=== PATIENT | male | born 1960 | race Caucasian/White ===

== ENCOUNTER 2016-10-16 16:39 | Emergency (ER) | payer MEDICAID, OTHER ==
[~2016-10-16] VITALS: Ht 175.3 cm; Wt 62.1 kg
[~2016-10-16 16:39] MED LIST: FLOMAX0.4 MG ORAL; IBUPROFEN600 MG ORAL; NORCO 5-325 TA1 EACH ORAL; RISPERDAL1 MG PO; SERTRALINE HCL25 MG ORAL; TRAZODONE HCL150 MG ORAL
[2016-10-16 18:30] VITALS: BP 121/72
[2016-10-16] MEDS ORDERED: Mylanta II UD 30ml ORAL ONE (19:15)
--- NOTE | 2016-10-16 19:38 | Emergency Room Report ---
History of Present Illness General Chief Complaint: Abdominal Pain Source: Patient, EMS Present Illness HPI Patient is a 56-year-old male who presented after increased pain to his upper abdomen. Patient reports having sharp pain which did not radiate. The patient gradual onset of symptoms. He reported having some nausea as well as increase pain. Patient stated that he had been having pain for several days. He denied black or bloody stools or hematemesis. Allergies: Coded Allergies: No Known Allergies (Unverified , 07/16/13) Patient History Reviewed Nursing Documentation: PMH: Agreed, PSxH: Agreed Nursing Documentation-PM Past Medical History: No History, Except For Hx Cancer: No Hx Gastrointestinal Problems: No History Of Psychiatric Problem: Yes - SCHIZOPHRENIA Hx Neurological Problems: No Review of Systems All Other Systems: negative except mentioned in HPI Physical Exam Vital Signs Date Time Temp Pulse Resp B/P Pulse Ox O2 Delivery O2 Flow Rate FiO2 10/16/16 17:04 98.1 87 18 145/78 97 Room Air Sp02 EP Interpretation: reviewed, normal General Appearance: normal inspection, well appearing, no apparent distress, alert Head: atraumatic ENT: normal ENT inspection, hearing grossly normal, normal voice Neck: normal inspection, full range of motion, supple, no bony tend Respiratory: normal inspection, lungs clear, normal breath sounds, no respiratory distress, no retraction, no wheezing Cardiovascular #1: regular rate, rhythm, no edema Gastrointestinal: normal inspection, normal bowel sounds, non tender, soft, no guarding, no hernia Genitourinary: no CVA tenderness Musculoskeletal: normal inspection, back normal, normal range of motion Neurologic: normal inspection, alert, oriented x3, responsive, studio hand III-XII nml as tested, speech normal Psychiatric: normal inspection, judgement/insight normal, mood/affect normal Skin: normal inspection, normal color, no rash Medical Decision Making Diagnostic Impression: Primary Impression: Drug abuse ER Course Patient presented for abdominal pain. Differential diagnoses included ischemic bowel, appendicitis, perforated viscus, abdominal aortic aneurysm, inferior myocardial infarction, viral gastroenteritis. Because of complexity of patient' s case laboratory testing and imaging studies were ordered. Laboratory testing was unremarkable.The patient is also noted complaint of suicidal thoughts. Urine drug screen was the positive for amphetamine. The patient was given oral pain medications. Patient was medically cleared for a psychiatric evaluation . The patient currently pending a psychiatric evaluation. Labs Test 10/16/16 19:55 7/18/17 20:10 White Blood Count 7.9 K/UL (4.8-10.8) Red Blood Count 5.14 M/UL (4.70-6.10) Hemoglobin 16.5 G/DL (14.2-18.0) Hematocrit 48.9 % (42.0-52.0) Mean Corpuscular Volume 95 FL (80-99) Mean Corpuscular Hemoglobin 32.1 PG (27.0-31.0) Mean Corpuscular Hemoglobin Concent 33.7 G/DL (32.0-36.0) Red Cell Distribution Width 10.8 % (11.6-14.8) Platelet Count 164 K/UL (150-450) Mean Platelet Volume 6.9 FL (6.5-10.1) Neutrophils (%) (Auto) 68.8 % (45.0-75.0) Lymphocytes (%) (Auto) 20.8 % (20.0-45.0) Monocytes (%) (Auto) 8.4 % (1.0-10.0) Eosinophils (%) (Auto) 1.2 % (0.0-3.0) Basophils (%) (Auto) 0.8 % (0.0-2.0) Sodium Level 136 mEQ/L (135-145) Potassium Level 3.9 mEQ/L (3.4-4.9) Chloride Level 92 mEQ/L (98-107) Carbon Dioxide Level 25 mEQ/L (20-30) Anion Gap 19 (5-15) Blood Urea Nitrogen 45 mg/dL (7-23) Creatinine 1.3 mg/dL (0.7-1.2) Estimat Glomerular Filtration Rate 57.1 mL/min (>60) Glucose Level 85 mg/dL (74-106) Calcium Level 9.8 mg/dL (8.6-10.2) Total Bilirubin 0.8 mg/dL (0.0-1.2) Aspartate Amino Transf (AST/SGOT) 40 U/L (5-40) Alanine Aminotransferase (ALT/SGPT) 13 U/L (3-41) Alkaline Phosphatase 65 U/L (40-129) Total Protein 7.9 g/dL (6.6-8.7) Albumin 4.6 g/dL (3.5-5.2) Globulin 3.3 g/dL Albumin/Globulin Ratio 1.3 (1.0-2.7) Lipase 28 U/L (< 60) Urine Color Yellow Urine Appearance Clear Urine pH 5 (4.5-8.0) Urine Specific [place] 1.020 (1.005-1.035) Urine Protein 1+ (NEGATIVE) Urine Glucose (UA) Negative (NEGATIVE) Urine Ketones 2+ (NEGATIVE) Urine Occult Blood Negative (NEGATIVE) Urine Nitrite Negative (NEGATIVE) Urine Bilirubin 1+ (NEGATIVE) Urine Ictotest Negative Urine Urobilinogen 1 MG/DL (0.0-1.0) Urine Leukocyte Esterase 1+ (NEGATIVE) Urine RBC 0-2 /HPF (0 - 0) Urine WBC 0-2 /HPF (0 - 0) Urine Squamous Epithelial Cells None /LPF (NONE/OCC) Urine Bacteria Moderate /HPF (NONE) Urine Opiates Screen Negative (NEGATIVE) Urine Barbiturates Screen Negative (NEGATIVE) Phencyclidine (PCP) Screen Negative (NEGATIVE) Urine Amphetamines Screen Positive (NEGATIVE) Urine Benzodiazepines Screen Positive (NEGATIVE) Urine Cocaine Screen Negative (NEGATIVE) Urine Marijuana (THC) Screen Negative (NEGATIVE) Last Vital Signs Date Time Temp Pulse Resp B/P Pulse Ox O2 Delivery O2 Flow Rate FiO2 10/16/16 18:30 98.6 51 24 121/72 99 Room Air Status: improved Condition: Stable Referrals: [facility],REFERRING (PCP) Esdras Taylor Oct 16, 2016 19:37
[2016-10-16 20:37] VITALS: BP 94/64
[2016-10-16 20:40] LABS: BASOPHILS % (AUTO) 0.8 % (0.0-2.0); EOSINOPHILS % (AUTO) 1.2 % (0.0-3.0); LYMPHOCYTES % (AUTO) 20.8 % (20.0-45.0); MEAN CORPUSCULAR HEMOGLOBIN 32.1 PG (27.0-31.0); MEAN CORPUSCULAR HGB CONC 33.7 G/DL (32.0-36.0); MEAN CORPUSCULAR VOLUME 95 FL (80-99); MEAN PLATELET VOLUME 6.9 FL (6.5-10.1); MONOCYTES % (AUTO) 8.4 % (1.0-10.0); NEUTROPHILS % (AUTO) 68.8 % (45.0-75.0); PLATELET COUNT 164 K/UL (150-450); RED BLOOD COUNT 5.14 M/UL (4.70-6.10); RED CELL DISTRIBUTION WIDTH 10.8 % (11.6-14.8); WHITE BLOOD COUNT 7.9 K/UL (4.8-10.8)
[2016-10-16 20:49] LABS: APPEARANCE,URINE CLEAR; KETONES,URINE 2+ (NEGATIVE); LEUKOCYTE ESTERASE ,URINE 1+ (NEGATIVE); NITRITE,URINE NEGATIVE (NEGATIVE); PH,URINE 5 (4.5-8.0); PROTEIN,URINE 1+ (NEGATIVE); UROBILINOGEN,URINE 1 MG/DL (0.0-1.0)
[2016-10-16 20:59] LABS: ALBUMIN/GLOBULIN RATIO 1.3 (1.0-2.7); CALCIUM 9.8 mg/dL (8.6-10.2); CREATININE 1.3 mg/dL (0.7-1.2); GLOMERULAR FILTRATION RATE 57.1 mL/min (>60); POTASSIUM 3.9 mEQ/L (3.4-4.9); TOTAL PROTEIN 7.9 g/dL (6.6-8.7)
[2016-10-16 21:07] LABS: RBC,URINE 0-2 /HPF (0 - 0); WBC,URINE 0-2 /HPF (0 - 0)
[2016-10-16 21:08] LABS: BACTERIA,URINE MODERATE /HPF
[2016-10-16 21:12] LABS: ICTOTEST NEGATIVE
[2016-10-17 01:00] VITALS: BP 92/67
[2016-10-17 04:40] VITALS: BP 106/66
[2016-10-17 06:39] VITALS: BP 98/62
[2016-10-17 07:07] VITALS: BP 98/62
--- NOTE | 2016-10-17 09:10 | Diagnostic Imaging Report ---
Clinical Indication: PAIN Technique: No oral contrast utilized, per emergency room physician request IV administration nonionic contrast. Venous phase spiral acquisition obtained through the abdomen and pelvis. Multiplanar reconstructions were generated. Total dose length product 606 mGycm. CTDIvol(s) 12 mGy. Dose reduction achieved using automated exposure control Comparison: 09/06/2013 Findings: Lack of enteric contrast limits assessment of the GI tract. There is considerable retained fecal material. No definite diverticulosis or diverticulitis. The appendix is not definitely demonstrated, but there are no findings to suggest acute appendicitis. No small bowel distention. No free or loculated intraperitoneal air or fluid is evident. Distal esophagus, stomach, duodenum are unremarkable. The liver, gallbladder, bile ducts, pancreas, spleen, adrenals, kidneys are unremarkable. Previously demonstrated left ureteral orifice stone is no longer evident. The bladder is unremarkable. No pelvic mass or adenopathy. No retroperitoneal or mesenteric mass or adenopathy. The lung bases demonstrate mild pulmonary parenchymal hyperinflation. The bones are unremarkable. There is an old healed fracture deformity of the left pubic bone Impression: No acute process Possible mild constipation Previously demonstrated distal left ureteral stone is no longer evident Possible mild COPD changes-correlate with clinical history Old healed left inferior pubic ramus fracture This agrees with the preliminary interpretation provided overnight by Dr. Navas The CT scanner at [facility] is accredited by the [employer] and the scans are performed using protocols designed to limit radiation exposure to as low as reasonably achievable to attain images of sufficient resolution adequate for diagnostic evaluation.
== END 2016-10-17 07:08 | disposition home or self-care (01) ==
LOC: EDBD 16:39 → EMR 18:54
DX: F19.10 Other psychoactive substance abuse, uncomplicated (principal); R10.9 Unspecified abdominal pain; F20.9 Schizophrenia, unspecified
CPT/HCPCS: 36415; 74177; 80053; 80300; 81003; 83690; 85025; 87086; 96360; 96374; 96375; 99284; J2405; Q9967

== ENCOUNTER 2016-10-17 09:27 | Emergency (ER) | payer OTHER ==
[~2016-10-17] VITALS: Ht 175.3 cm; Wt 63.5 kg
[2016-10-17 09:59] VITALS: BP 110/77
--- NOTE | 2016-10-17 10:10 | Emergency Room Report ---
History of Present Illness General Chief Complaint: Behavioral Complaint Source: Patient, Medical Record, Caregiver Present Illness HPI 56YOM BIB SW for SI. Has specific plan for SI this time, including OD on Tylenol. Denies JUAN ALBERTO AVH Was seen and evaluated last night and medically cleared Came back with SW requesting psych eval Dr Bowen evaluating patient Allergies: Coded Allergies: No Known Allergies (Unverified , 07/16/13) Patient History Past Medical History: psych hx Past Surgical History: none Pertinent Family History: none Social History: Denies: alcohol use, drug use, smoking Immunizations: UTD Reviewed Nursing Documentation: PMH: Agreed, PSxH: Agreed Nursing Documentation-PMH Hx Cancer: No Hx Gastrointestinal Problems: No History Of Psychiatric Problem: Yes - DEPRESSION Hx Neurological Problems: No Review of Systems All Other Systems: negative except mentioned in HPI Physical Exam Vital Signs Date Time Temp Pulse Resp B/P Pulse Ox O2 Delivery O2 Flow Rate FiO2 10/17/16 09:31 97.5 50 20 110/77 99 Room Air Sp02 EP Interpretation: reviewed, normal General Appearance: normal inspection, well appearing, no apparent distress, alert, GCS 15, non-toxic Head: normocephalic, atraumatic Eyes: bilateral eye EOMI, bilateral eye PERRL ENT: normal ENT inspection, hearing grossly normal, normal voice Neck: normal inspection, full range of motion, supple, no bony tend Respiratory: normal inspection, lungs clear, normal breath sounds, no respiratory distress, no retraction, no wheezing Cardiovascular #1: regular rate, rhythm, no edema Gastrointestinal: normal inspection, normal bowel sounds, soft, no guarding, no hernia, other Genitourinary: no CVA tenderness Musculoskeletal: normal inspection, back normal, normal range of motion, Inga' s Sign negative Neurologic: alert, oriented x3, responsive, indirect sales exec III-XII nml as tested, motor strength/tone normal Psychiatric: normal inspection, judgement/insight normal, memory normal, mood/ affect normal, no delusions, other - + SI Skin: normal inspection, normal color, no rash Lymphatic: normal inspection Medical Decision Making Diagnostic Impression: Primary Impression: Suicidal ideation ER Course VSS. Afebrile. + SI Evaluated by Psych, recommended 1mg risperdone Patient to go to [facility] voluntarily for inpatient psych eval DC from ED Last Vital Signs Date Time Temp Pulse Resp B/P Pulse Ox O2 Delivery O2 Flow Rate FiO2 10/17/16 09:59 97.5 55 20 110/77 99 Room Air Status: improved Disposition: XFER TO PSYCH HOSP/UNIT MARYBETH KLINE M.D. Oct 17, 2016 10:10
[2016-10-17 13:01] VITALS: BP_SYST 110; BP_SYST 118; BP_DIAS 66; BP_DIAS 77
--- NOTE | 2016-10-17 18:00 | Consultation ---
DATE OF CONSULTATION: HISTORY OF PRESENT ILLNESS: The patient is a 56-year-old male with a history of crystal meth and benzodiazepine dependence as well as depression. He came to the [facility] on 10/17/2016 after he was discharged from [facility] and being treated with benzodiazepine. He came to [place] and stated that he is suicidal. He was during the night, he stabilized, and early this morning he was discharged. He went to the waiting room in [facility] and called his social and human services assistant at the outpatient program in [place], Esvin Dewitt. He stated that he is suicidal, he overdosed on his Tylenol. I was called to come back to the ER and assess him for suicidal ideation. During the evaluation, the patient stated that he has been having depression, anhedonia, and paranoid ideation. He stated he wanted to go back to his house. He is afraid that he might get hurt by the neighbors. He states that he is suicidal and would overdose on trazodone, however, he told the other doctor that he would overdose on Tylenol. Initially, he was uncooperative with taking antipsychotics, then he agreed on taking them. The social and human services assistant was at bedside. Apparently, the patient relapsed on crystal meth a few days ago. He has spent all his money and currently does not have any funds to buy food. The patient is insisting to go to the hospital as he states that he is danger to himself. The social and human services assistant is a strong advocate that the patient would kill himself. Therefore, we had a plan for the patient to go to psychiatric unit. The patient agreed to go to a psych unit to be safe. He does not endorse any delusions. No auditory or visual hallucinations. His urine toxicology was positive for benzodiazepine and amphetamines. PAST PSYCHIATRIC HISTORY: He has a history of several psychiatric hospitalization, diagnosed with depression. He is already in a program at [place]. He stopped his trazodone and relapsed on crystal meth, not recall when the last time was that he saw his psychiatrist. MENTAL STATUS EXAMINATION: The patient is alert and oriented x4, somewhat uncooperative. His mood was depressed. Affect is constricted. Congruent with mood. Thought process was linear, however, he was uncooperative with the evaluation. Thought content was positive for SI. Insight and judgment was fair. ASSESSMENT: [place] I Major depressive disorder with psychotic features. [place] II Deferred. [place] III As above. [place] IV Low. [place] V Global assessment of function is 20. PLAN: 1. The patient will be administered risperidone 1 mg. 2. We will transfer the patient to psychiatric unit on a voluntary status, everyone agrees. Toshia Bowen M.D. DR: SOFIA JOB#: [id number] CC:
== END 2016-10-17 13:04 ==
LOC: EMR 10:15
DX: F32.9 Major depressive disorder, single episode, unspecified (principal); F13.20 Sedative, hypnotic or anxiolytic dependence, uncomplicated; F15.20 Other stimulant dependence, uncomplicated
CPT/HCPCS: 99285

== ENCOUNTER → 2017-05-05 | Emergency (ER) | payer OTHER ==
[~2017-05-05] VITALS: Ht 170.2 cm; Wt 68.0 kg
[2017-05-05 16:28] VITALS: BP 141/89
--- NOTE | 2017-05-05 17:07 | Emergency Room Report ---
History of Present Illness General Chief Complaint: Substance Abuse Source: Patient Present Illness HPI 56-year-old male, history of bipolar disorder, polysubstance abuse, p/w chest pain for 1 day Chest pain started while patient was smoking crack cocaine today. Localized to substernal area, no radiation to back or other areas, sharp in nature, multiple episodes. + SOB. Denies palpitations, diaphoresis, n/v. Denies current chest pain Denies fever, chills, cough, abd pain. Denies trauma. Unknown stress test or cardiac cath Also states that he is wanting to cut his wrists, states that he has been hospitalized for psych in the past, takes Wellbutrin and Risperdal Allergies: Coded Allergies: No Known Allergies (Unverified , 07/16/13) Patient History Past Medical History: see triage record Past Surgical History: none Pertinent Family History: none Reviewed Nursing Documentation: PMH: Agreed, PSxH: Agreed Nursing Documentation-PMH Hx Cancer: No Hx Gastrointestinal Problems: No Hx Neurological Problems: No Review of Systems All Other Systems: negative except mentioned in HPI Physical Exam Vital Signs Date Time Temp Pulse Resp B/P (MAP) Pulse Ox O2 Delivery O2 Flow Rate FiO2 05/05/17 16:28 97.9 110 18 141/89 99 Room Air Sp02 EP Interpretation: reviewed, normal General Appearance: alert, GCS 15, non-toxic, mild distress Head: normocephalic, atraumatic Eyes: bilateral eye normal inspection, bilateral eye PERRL, bilateral eye EOMI ENT: normal ENT inspection, normal pharynx, normal voice, moist mucus membranes Neck: normal inspection, full range of motion, supple Respiratory: normal inspection, lungs clear, normal breath sounds, no respiratory distress, no retraction, no wheezing, speaking full sentences, chest symmetrical Cardiovascular #1: normal inspection, regular rate, rhythm, normal capillary refill Cardiovascular #2: 2+ radial (R), 2+ radial (L) Gastrointestinal: normal inspection, non tender, soft, non-distended, no guarding Musculoskeletal: normal inspection, back normal, normal range of motion, non- tender Neurologic: normal inspection, alert, oriented x3, responsive, motor strength/ tone normal, sensory intact, normal gait, speech normal Psychiatric: depressed affect, anxious Skin: normal inspection, normal color, no rash, warm/dry, well hydrated, normal turgor Medical Decision Making Diagnostic Impression: Primary Impression: Chest pain ER Course 56-year-old male, polysubstance abuse, chest pain DDX: Cocaine induced chest pain, ACS vs. CHF vs. pneumonia vs. gastritis/GERD vs. pneumothorax Also wanting to cut wrists. no plan for suicide. Plan: IV access, obtain labs including troponin, EKG, CXR PSYCH CONSULT. ER course: Patient had been calm, and sitting in stretcher during stay. Patient was pending blood work, found to have cut his wrists in ED. I attended to patient, nursing staff was told immediately to attend/watch patient Ran out of ED stated that he does not want to be here, was witnessed by staff Security staff and myself attempted to look for patient without success Disposition: Patient eloped Please note that this Emergency Department Report was dictated using [employer] engagement specialist technology software, occasionally this can lead to erroneous entry secondary to interpretation by the dictation equipment. EKG Diagnostic Results EP Interpretation: Yes Rate: normal Rhythm: NSR ST Segments: No acute changes ASA given to patient: No Last Vital Signs Date Time Temp Pulse Resp B/P (MAP) Pulse Ox O2 Delivery O2 Flow Rate FiO2 05/05/17 16:28 97.9 110 18 141/89 99 Room Air Disposition: ELOPED Condition: Stable Henna Schneider M.D. May 05, 2017 17:07
--- NOTE | 2017-05-06 11:44 | Diagnostic Imaging Report ---
Indication: Chest pain Technique: One view of the chest Comparison: 10/14/2013 Findings: Lungs and pleural spaces are clear. Heart size is normal . There are old healed right rib fracture deformities again demonstrated. There is degenerative spondylosis. No significant change Impression: No acute process
--- NOTE | 2017-05-06 18:21 | Cardiology Report ---
APPROVED REPORT EKG Measurement Heart [id number] Sinus tachycardia Otherwise normal ECG
== END | disposition home or self-care (01) ==
LOC: EDUNIT# 16:28 → EDBD 16:39 → EMR 17:10
DX: R07.89 Other chest pain (principal); F14.10 Cocaine abuse, uncomplicated
CPT/HCPCS: 71045; 93005; 99284